=== PATIENT | female | born 1995 | race African-American/Black ===

== ENCOUNTER 2016-10-08 03:24 | Emergency (ER) | payer SELFPAY ==
[~2016-10-08] VITALS: Ht 167.6 cm; Wt 106.1 kg
[2016-10-08] MEDS ORDERED: PROMETHAZINE-P118 M1 PO (04:10)
[2016-10-08] MEDS ORDERED: IBUPROFEN600 MG ORAL (04:10)
--- NOTE | 2016-10-08 04:10 | Emergency Room Report ---
History of Present Illness General Chief Complaint: Upper Respiratory Illness Source: Patient Present Illness [facility] This is a 20-year-old female who presents with chief complaint of shortness of breath and coughing. She also has chest tightness. Has been ongoing for last 4 days. She fell it is getting worse. Chest being tight. Worse with lying flat. Also with runny nose and congestion. No fever or chills. No nausea no vomiting. Cough is nonproductive in nature. Allergies: Coded Allergies: CETIRIZINE (Verified Allergy, Unknown, 10/08/16) Patient History Past Medical History: see triage record, old chart reviewed Past Surgical History: none Pertinent Family History: none Social History: Denies: smoking Last Menstrual Period: Sep Now: No Immunizations: other Reviewed Nursing Documentation: PMH: Agreed, PSxH: Agreed Nursing Documentation-PMH Past Medical History: No Stated History Review of Systems Eye: Denies: blurred vision, eye pain ENT: Denies: ear pain, nose congestion, throat swelling Respiratory: Reports: cough, Denies: shortness of breath Cardiovascular: Reports: chest pain, Denies: palpitations Gastrointestinal: Denies: abdominal pain, diarrhea, nausea, vomiting Musculoskeletal: Denies: back pain, joint pain Skin: Denies: rash Neurological: Denies: headache, numbness Endocrine: Denies: increased thirst, increased urine Hematologic/Lymphatic: Denies: easy bruising All Other Systems: negative except mentioned in HPI Physical Exam Vital Signs Date Time Temp Pulse Resp B/P Pulse Ox O2 Delivery O2 Flow Rate FiO2 10/08/16 03:39 98.4 109 18 100/63 98 Room Air vitals unremarkable Sp02 EP Interpretation: reviewed, normal General Appearance: well appearing, no apparent distress, alert Head: normocephalic, atraumatic Eyes: bilateral eye EOMI, bilateral eye PERRL ENT: hearing grossly normal, normal pharynx Neck: full range of motion, supple, no meningismus Respiratory: chest non-tender, lungs clear, normal breath sounds Cardiovascular #1: regular rate, rhythm, no murmur Gastrointestinal: normal bowel sounds, non tender, no mass, no organomegaly, no bruit, non-distended Musculoskeletal: back normal, gait/station normal, normal range of motion Psychiatric: mood/affect normal Skin: warm/dry Medical Decision Making Diagnostic Impression: Primary Impression: Upper respiratory infection Qualified Codes: J06.9 - Acute upper respiratory infection, unspecified; B97.89 - Other viral agents as the cause of diseases classified elsewhere Additional Impression: Obesity (BMI 35.0-39.9 without comorbidity) ER Course Patient with upper respiratory infection from viral infection. No evidence of ACS, PE, dissection. Chest pain is noncardiac. We'll discharge home with reassurance. Last Vital Signs Date Time Temp Pulse Resp B/P Pulse Ox O2 Delivery O2 Flow Rate FiO2 10/08/16 03:39 98.4 109 18 100/63 98 Room Air Status: improved Disposition: HOME, SELF-CARE Condition: Stable Scripts Promethazine/Phenyleph/Codeine (Tnnibylyehqh-BK-Aablwhf Syrup) 118 Ml Syrup 118 ML PO Q6HR, #120 ML Prov: LANDEN BAEZA M.D. 10/08/16 Ibuprofen* (MOTRIN*) 600 Mg Tablet 600 MG ORAL Q8H Y for For Pain, #30 TAB 0 Refills Prov: LANDEN BAEZA M.D. 10/08/16 Referrals: NOT CHOSEN [facility]/,REFERRING (PCP) Patient Instructions: Upper Respiratory Infection, Adult Additional Instructions: Followup with your DrRadha in 7 days. Return if worse. LANDEN BAEZA M.D. Oct 08, 2016 04:10
[2016-10-08 04:14] VITALS: BP 100/63
[2016-10-08 04:17] VITALS: BP 100/63
== END 2016-10-08 04:18 | disposition home or self-care (01) ==
LOC: EMR 04:02
DX: J06.9 Acute upper respiratory infection, unspecified (principal); E66.9 Obesity, unspecified
CPT/HCPCS: 99284

== ENCOUNTER 2016-11-24 20:58 | Emergency (ER) | payer SELFPAY ==
[~2016-11-24] VITALS: Ht 167.6 cm; Wt 99.8 kg
[~2016-11-24 20:58] MED LIST: IBUPROFEN600 MG ORAL; PROMETHAZINE-P118 M1 PO
[2016-11-24 22:12] LABS: APPEARANCE,URINE CLEAR; KETONES,URINE NEGATIVE (NEGATIVE); LEUKOCYTE ESTERASE ,URINE 3+ (NEGATIVE); NITRITE,URINE NEGATIVE (NEGATIVE); PH,URINE 7 (4.5-8.0); PROTEIN,URINE 3+ (NEGATIVE); UROBILINOGEN,URINE NORMAL MG/DL (0.0-1.0)
[2016-11-24 22:16] VITALS: BP 119/74
[2016-11-24 22:30] LABS: BACTERIA,URINE MODERATE /HPF; SQUAMOUS EPITHELIAL CELL,UR FEW /LPF (NONE/OCC); WBC,URINE 15-20 /HPF (0 - 2)
[2016-11-24] MEDS ORDERED: Cephalexin 500mg cap ORAL ONE (23:15)
[2016-11-24] MEDS ORDERED: Pedialyte 1000ml Btl ORAL ONE (23:15)
[2016-11-25] MEDS ORDERED: IBUPROFEN600 MG ORAL (01:39)
[2016-11-25] MEDS ORDERED: KEFLEX500 MG ORAL (01:39)
[2016-11-25] MEDS ORDERED: ZOFRAN4 MG ORAL (01:40)
[2016-11-25 02:02] VITALS: BP 124/66
[2016-11-25 02:04] VITALS: BP 124/66
--- NOTE | 2016-11-30 16:54 | Emergency Room Report ---
History of Present Illness General Chief Complaint: Abdominal Pain Source: Patient Present Illness HPI Patient is a 21-year-old female who presented after having increased abdominal pain. Patient noted have suprapubic pain which was acute onset. She denied any fever or vomiting. She reported having some dysuria.Patient denied feeling dizzy or lightheaded. Patient had denied fever. Allergies: Coded Allergies: CETIRIZINE (Verified Allergy, Unknown, 10/08/16) Patient History Past Medical History: see triage record Last Menstrual Period: 11/16/16 Now: No Reviewed Nursing Documentation: PMH: Agreed, PSxH: Agreed Nursing Documentation-PMH Past Medical History: No Stated History Review of Systems All Other Systems: negative except mentioned in HPI Physical Exam Vital Signs Date Time Temp Pulse Resp B/P Pulse Ox O2 Delivery O2 Flow Rate FiO2 11/24/16 21:11 98.4 108 17 116/70 98 Room Air General Appearance: well appearing, no apparent distress, alert, GCS 15 Head: normocephalic, atraumatic ENT: hearing grossly normal, normal voice Neck: full range of motion, supple Respiratory: no respiratory distress, speaking full sentences Cardiovascular #1: normal inspection, regular rate, rhythm Gastrointestinal: normal inspection, normal bowel sounds, soft Musculoskeletal: normal inspection, back normal, no calf tenderness Neurologic: normal inspection, alert, oriented x3, responsive, 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 Differential diagnoses included ischemic bowel, appendicitis, perforated viscus, abdominal aortic aneurysm, inferior myocardial infarction, viral gastroenteritis. The patient presented urinary tract infection. She appears stable for discharge. The patient is advised to follow up with primary care doctor in 1-2 days. Patient is advised to return if any worsening condition or if any changes in status that are concerning. Labs Test 11/24/16 21:40 Urine Color Pale yellow Urine Appearance Clear Urine pH 7 (4.5-8.0) Urine Specific [place] 1.005 (1.005-1.035) Urine Protein 3+ (NEGATIVE) Urine Glucose (UA) Negative (NEGATIVE) Urine Ketones Negative (NEGATIVE) Urine Occult Blood 5+ (NEGATIVE) Urine Nitrite Negative (NEGATIVE) Urine Bilirubin Negative (NEGATIVE) Urine Urobilinogen Normal MG/DL (0.0-1.0) Urine Leukocyte Esterase 3+ (NEGATIVE) Urine RBC 5-10 /HPF (0 - 2) Urine WBC 15-20 /HPF (0 - 2) Urine Squamous Epithelial Cells Few /LPF (NONE/OCC) Urine Bacteria Moderate /HPF (NONE) Urine HCG, Qualitative Negative Last Vital Signs Date Time Temp Pulse Resp B/P Pulse Ox O2 Delivery O2 Flow Rate FiO2 11/25/16 02:04 98.2 98 18 124/66 96 Room Air Status: improved Disposition: HOME, SELF-CARE Condition: Stable Scripts Ondansetron (Zofran) 4 Mg Tablet 4 MG ORAL Q6H Y for Nausea & Vomiting, #30 TAB 0 Refills Prov: Efren Gonzalez 11/25/16 Ibuprofen* (MOTRIN*) 600 Mg Tablet 600 MG ORAL Q8H Y for For Pain, #30 TAB 0 Refills Prov: Efren Gonzalez 11/25/16 Cephalexin* (KEFLEX*) 500 Mg Capsule 500 MG ORAL Q6H, #28 CAP 0 Refills Prov: Efren Gonzalez 11/25/16 Patient Instructions: Dysuria, Abdominal Pain, Adult Efren Gonzalez Nov 30, 2016 16:54
== END 2016-11-25 02:04 | disposition home or self-care (01) ==
LOC: EMR 21:28
DX: N39.0 Urinary tract infection, site not specified (principal); Z88.8 Allergy status to other drugs, medicaments and biological substances
CPT/HCPCS: 81003; 81025; 87086; 87181; 99284